=== PATIENT | female | born 1950 | race Caucasian/White ===

== ENCOUNTER → 2016-10-17 | Outpatient (CLI) | payer BC ==
[~2016-10-17] MED LIST: ASPEC81 PO; ATOR-22 PO; FISHOIL PO; LORA-741 PO; METO50TA7 PO; MULTTAB PO; OMEP20CA59 PO; ZYRUNK PO; biotene PO
--- NOTE | 2016-10-17 16:01 | DIAGNOSTIC IMAGING REPORT ---
RIGHT ELBOW 3 VIEWS CLINICAL HISTORY: Chronic right elbow pain. FINDINGS: 3 views of the right elbow are obtained. No prior studies are available for comparison at the time of dictation. The skeletal structures are osteopenic. No fracture is seen. The joint spaces of the elbow appear well-maintained. There is a small enthesophyte arising from the lateral humeral epicondyle. No joint effusion is seen. The overlying soft tissues are within normal limits. IMPRESSION: No acute bony abnormality is seen in the right elbow. Electronically signed by: Wes Dinero M.D. 10/17/2016 3:59 PM
== END | disposition home or self-care (01) ==
LOC: C.RADBC 15:24
PROVIDERS: ATTEND Family Medicine
DX: M25.521 Pain in right elbow (principal)

== ENCOUNTER → 2016-12-08 | Outpatient (CLI) | payer BC | END | disposition home or self-care (01) | LOC: C.PAPS 09:30 | PROVIDERS: ATTEND Obstetrics & Gynecology | DX: Z01.419 Encounter for gynecological examination (general) (routine) without abnormal findings (principal) ==

== ENCOUNTER → 2016-12-09 | Outpatient (CLI) | payer BC ==
[2016-12-09 10:17] LABS: ALT/SGPT 20 U/L (12-78); BLOOD UREA NITROGEN 28 mg/dl (7-18); BUN/CREATININE RATIO 37.9 (10-20); CALCIUM 8.7 mg/dl (8.5-10.1); CARBON DIOXIDE 26 mmol/L (21-32); CHLORIDE 106 mmol/L (98-107); CHOLESTEROL 182 mg/dl (0-200); CREATININE 0.75 mg/dl (0.60-1.20); GLUCOSE 98 mg/dl (70-99); POTASSIUM 3.8 mmol/L (3.5-5.1); SODIUM 139 mmol/L (136-145); TRIGLYCERIDES 67 mg/dl (0-150); VERY LOW DENSITY LIPOPROT CALC 13 mg/dl
[2016-12-09 10:20] LABS: ALB/GLOB RATIO 1.2 (0.9-2); ALKALINE PHOSPHATASE 45 U/L (45-117); AST/SGOT 17 U/L (15-37); CHOLESTEROL/HDL RATIO 2.1; HDL CHOLESTEROL 87 mg/dl; LDL CHOLESTEROL CALCULATED 82 mg/dl
[2016-12-09 11:10] LABS: ESTIMATED AVERAGE GLUCOSE 111 mg/dl; HA1C FLAG Normal (Normal)
--- NOTE | 2016-12-13 13:28 | CODING QUERY MEDICAL NECESSITY ---
SUPPORTING DIAGNOSIS NEEDED A supporting diagnosis is required for the test/procedure performed on this patient in order for us to be reimbursed by the patient's insurance. Please provide a supporting diagnosis for the following test/procedure listed below next to the test name along with your signature. *If there is no additional diagnosis for this patient that would support the following test/procedure please document that below next to the test/procedure. Test(s)/Procedure(s) that require a supporting diagnosis: DOS 12/09 * Hba1c DIAGNOSIS: Provider Signature: Date: Thank you Dorina Paul Health Information Management Once completed, please kindly fax back to [phone] For questions please call [phone]
== END | disposition home or self-care (01) ==
LOC: C.LAB1850 09:10
PROVIDERS: ATTEND Family Medicine
DX: Z11.59 Encounter for screening for other viral diseases (principal); I10 Essential (primary) hypertension; R73.03 Prediabetes; E78.5 Hyperlipidemia, unspecified

== ENCOUNTER → 2017-09-21 | Outpatient (CLI) | payer BC ==
--- NOTE | 2017-09-22 13:38 | MAMMOGRAPHY REPORT ---
BILATERAL DIGITAL SCREENING MAMMOGRAM TOMOSYNTHESIS WITH CAD: 09/21/2017 CLINICAL HISTORY: Routine screening. Patient has no complaints. TECHNIQUE: Breast tomosynthesis in addition to standard 2D mammography was performed. Current study was also evaluated with a Computer Aided Detection (CAD) system. COMPARISON: Comparison is made to exams dated: 09/21/2016 mammogram, 09/17/2015 mammogram, 09/15/2014 m ammogram, 09/05/2013 mammogram, 09/04/2012 mammogram - [facility], and 08/29/2011 m ammogram - [facility]. BREAST COMPOSITION: The tissue of both breasts is heterogeneously dense, which may obscure small mas ses. FINDINGS: No suspicious masses, calcifications, or areas of architectural distortion are noted in ei ther breast. There has been no significant interval change compared to prior exams. Scattered bilater al benign-appearing calcifications are not significantly changed. A biopsy marker clip is again note d in the left upper outer quadrant. IMPRESSION: ACR BI-RADS CATEGORY 2: BENIGN There is no mammographic evidence of malignancy. A 1 year screening mammogram is recommended. The pa tient will receive written notification of the results. Approximately 10% of breast cancers are not detected with mammography. A negative mammographic report should not delay biopsy if a clinically suggestive mass is present. Claritza Esqueda M.D. /:09/21/2017 16:29:20 [employer]: Liset DE DIOS(Kiarn)(M), [facility] letter sent: Normal 1/2 BI-RADS Code: ACR BI-RADS Category 2: Benign
== END | disposition home or self-care (01) ==
LOC: C.MAMM 13:15
PROVIDERS: ATTEND Obstetrics & Gynecology
DX: Z12.31 Encounter for screening mammogram for malignant neoplasm of breast (principal)

== ENCOUNTER 2017-12-04 21:59 | Emergency (ER) | payer BC ==
[~2017-12-04] VITALS: Ht 165.1 cm; Wt 78.8 kg
[~2017-12-04 21:59] MED LIST changes: -METO50TA7 PO; +METO50TA8 PO
[2017-12-04 22:09] VITALS: TEMP 36.3; Ht 165.1 cm; Wt 78.8 kg
--- NOTE | 2017-12-04 22:35 | DIAGNOSTIC IMAGING REPORT ---
L WRIST MIN 3 VIEWS ROUTINE CLINICAL HISTORY: fell left wrist pain trauma. Pain. COMPARISON: None. DISCUSSION: Nondisplaced transverse cortical fracture distal radius. Small old avulsion ulnar styloid. Bony alignment is anatomic. Moderate soft tissue edema. All remaining osseous structures are unremarkable. IMPRESSION: Nondisplaced transverse cortical fracture distal radius. Small old avulsion ulnar styloid. The above report was generated using voice recognition software. It may contain grammatical, syntax or spelling errors. Electronically signed by: Ryan Boo M.D. 12/04/2017 10:33 PM Dictated Date/Time: 12/04/2017 10:32 PM
[2017-12-04] MEDS ORDERED: IBUPROFEN 600 MG TAB PO STA (23:25)
--- NOTE | 2017-12-05 00:29 | EMERGENCY ROOM VISIT NOTE ---
History Report prepared by Sugey: Nevin Barreto Under the Supervision of: Dr. Graeme Calix D.O. First contact with patient: 23:21 Chief Complaint: HAND PAIN/INJURY Stated Complaint: L HAND/WRIST INJURY-FALL History of Present Illness The patient is a 67 year old female who presents to the Emergency Room with complaints of persistent left wrist pain starting [employer]. The patient tripped on a laundry basket in her home and fell backwards. She landed on her left wrist onto hardwood floor. She did not hit her head. She has not taken anything for her pain. She has some right wrist pain. She denies any back pain, neck pain, or hip pain. Source of History: patient Onset: [employer] Position: wrist (left) Quality: other (pain) Timing: other (persistent) Associated Symptoms: No neck pain, No back pain Review of Systems See HPI for pertinent positives & negatives. A total of 10 systems reviewed and were otherwise negative. Past Medical & Surgical Medical Problems: (1) Cutaneous lupus erythematosus (2) Diverticulosis Colon (W/O Ment Of Hemorrhage) (3) HTN (hypertension) (4) Hyperlipidemia Nec/Nos (5) Hypertension Nos (6) IBS (irritable bowel syndrome) (7) Osteoarthritis (8) TMJ disease Surgical Problems: (1) History of appendectomy Family History Diabetes mellitus FH: cancer FH: heart disease FH: lung disease Hypertension Social History Smoking Status: Never Smoker Alcohol Use: occasionally Drug Use: none Marital Status: Housing Status: lives with significant other Occupation Status: retired Current/Historical Medications Scheduled Aspirin Enteric Coated (Ecotrin Or Generic *), 81 MG PO DAILY Atorvastatin (Lipitor), 20 MG PO QPM Cetirizine (Zyrtec Unkown Dose), 10 MG PO DAILY Fish Oil (Oneill-3), 1,200 MG PO DAILY Lorazepam (Ativan), 0.25 MG PO BID PRN Metoprolol Succ (Toprol Xl) (Toprol-Xl), 50 MG PO QPM Multivitamins/Minerals (Mvi With Minerals), 1 TAB PO DAILY Omeprazole (Prilosec), 20 MG PO QPM [biotene], 2,500 MG PO DAILY Allergies Coded Allergies: Pseudoephedrine (Verified Allergy, Mild, 05/17/12) Adhesives (Verified Allergy, Unknown, REDNESS, RASH, 08/26/15) Penicillins (Verified Allergy, Unknown, 05/17/12) Physical Exam Vital Signs Date Time Temp Pulse Resp B/P (MAP) Pulse Ox O2 Delivery O2 Flow Rate FiO2 12/05/17 00:31 82 18 131/86 98 12/04/17 23:16 76 18 140/96 98 Room Air 12/04/17 22:09 36.3 85 18 139/76 97 Room Air Physical Exam GENERAL: Patient is awake, alert, and in no acute distress. Patient is resting comfortably and showing no signs of anxiety EYES: The conjunctivae are clear. The pupils are round and reactive. EARS, NOSE, MOUTH AND THROAT: The nose is without any evidence of any deformity. Mucous membranes are moist tongue is midline NECK: The neck is nontender and supple. RESPIRATORY: Normal respiratory effort is noted there is no evidence of wheezing rhonchi or rales CARDIOVASCULAR: Regular rate and rhythm noted there no murmurs rubs or gallops normal S1 normal S2 GASTROINTESTINAL: The abdomen is soft. Bowel sounds are present in all quadrants. Abdomen is nontender BACK: No midline tenderness or or step-off noted range of motion in flexion extension as well as rotation no signs of muscle spasm noted MUSCULOSKELETAL/EXTREMITIES: There is swelling and tenderness over the dorsum of the left wrist. No deformity in the lower extremities. SKIN: There is no obvious evidence of any rash. There are no petechiae, pallor or cyanosis noted. NEUROLOGIC: Patient is awake alert and oriented x3 Medical Decision & Procedures ER Provider Diagnostic Interpretation: X-ray results as stated below per interpretation by me and the radiologist. L WRIST MIN 3 VIEWS ROUTINE CLINICAL HISTORY: fell left wrist pain trauma. Pain. COMPARISON: None. DISCUSSION: Nondisplaced transverse cortical fracture distal radius. Small old avulsion ulnar styloid. Bony alignment is anatomic. Moderate soft tissue edema. All remaining osseous structures are unremarkable. IMPRESSION: Nondisplaced transverse cortical fracture distal radius. Small old avulsion ulnar styloid. The above report was generated using voice recognition software. It may contain grammatical, syntax or spelling errors. Electronically signed by: Ryan Boo M.D. 12/04/2017 10:33 PM Dictated Date/Time: 12/04/2017 10:32 PM Medications Administered Medications (Trade) Dose Ordered Sig/Nadir Route Start Time Stop Time Status Last Admin Dose Admin Ibuprofen (Motrin Tab) 600 mg NOW STAT PO 12/04/17 23:25 12/04/17 23:26 DC 12/04/17 23:53 600 MG ED Course 232: The patient was evaluated in room B10. A complete history and physical examination were performed. I discussed the results and treatment plan with her. She verbalized agreement of the treatment plan. She was discharged home. 2324: Ibuprofen 600 mg PO. Medical Decision Prior records reviewed and summarized above. Triage Nursing notes reviewed. Differential diagnosis: Etiologies such as fracture, dislocation, neurovascular compromise, compartment syndrome, soft tissue injury, as well as others were entertained. The patient is a 67-year-old female who presented to the emergency department for an evaluation after fall. The patient suffered an isolated left wrist fracture. The patient's x-ray showed signs of distal radius fracture. I showed the patient her x-rays. I told her that I thought her scaphoid could be involved as well. The patient was encouraged to continue using Motrin and Tylenol for pain. She was placed in a splint. She had significant pain relief with the splint. She was encouraged to follow-up with her primary orthopedic physician tomorrow for further evaluation and return to the emergency department immediately if symptoms change or worsen in the need arises. Medication Reconcilliation Current Medication List: was personally reviewed by me Blood Pressure Screening Patient's blood pressure: Elevated blood pressure Blood pressure disposition: Elevated BP felt to be situational Impression Primary Impression: Distal radius fracture, left Additional Impression: Wrist sprain Scribe Attestation The scribe's documentation has been prepared under my direction and personally reviewed by me in its entirety. I confirm that the note above accurately reflects all work, treatment, procedures, and medical decision making performed by me. Departure Information Dispostion Home / Self-Care Referrals Bennett Villalobos MD (PCP) Juvenal Leal D.O. Forms HOME CARE DOCUMENTATION FORM, IMPORTANT VISIT INFORMATION Patient Instructions My [facility], ED Fx Wrist General Additional Instructions Call Dr Leal in the morning to schedule a follow up appointment. Continue using Motrin or Tylenol as directed for pain. Be sure to ask your orthopedic doctor about the scaphoid bone to determine if there is any injury to this area. Problem Qualifiers Primary Impression: Distal radius fracture, left Encounter type: initial encounter Fracture type: closed Fracture morphology : other fracture Qualified Codes: S52.592A - Other fractures of lower end of left radius, initial encounter for closed fracture Additional Impression: Wrist sprain Encounter type: initial encounter Laterality: left Qualified Codes: S63.502A - Unspecified sprain of left wrist, initial encounter
[2017-12-05 00:31] VITALS: BP 131/86; PULSE 82; O2SAT 98
== END 2017-12-05 00:32 | disposition home or self-care (01) ==
LOC: C.EDB 22:00
DX: S52.592A Other fractures of lower end of left radius, initial encounter for closed fracture (principal); S63.502A Unspecified sprain of left wrist, initial encounter; W19.XXXA Unspecified fall, initial encounter; I10 Essential (primary) hypertension; E78.5 Hyperlipidemia, unspecified; M19.90 Unspecified osteoarthritis, unspecified site; K58.9 Irritable bowel syndrome, unspecified; Z83.3 Family history of diabetes mellitus; Z82.49 Family history of ischemic heart disease and other diseases of the circulatory system; Z79.82 Long term (current) use of aspirin; Z88.0 Allergy status to penicillin; Z88.8 Allergy status to other drugs, medicaments and biological substances

== ENCOUNTER → 2017-12-12 | Outpatient (CLI) | payer BC | END | disposition home or self-care (01) | LOC: C.PAPS 15:04 | PROVIDERS: ATTEND Obstetrics & Gynecology | DX: Z01.419 Encounter for gynecological examination (general) (routine) without abnormal findings (principal) ==